=== PATIENT | female | born 1975 | race Hispanic/Latino ===

== ENCOUNTER 2019-03-29 23:36 | Emergency (ER) | payer OTHER ==
[2019-03-30] MEDS ORDERED: KETOROLAC TROMETHAMINE 30MG/ML ONE (00:22)
[2019-03-30] MEDS ORDERED: TETANUS/DIPHTHERIA TOXOID [ADULT] 0.5 ML VIAL IM ONE (00:22)
== END 2019-03-30 00:47 | disposition home or self-care (01) ==
LOC: EDH 23:36
DX: L03.011 Cellulitis of right finger (principal); E11.9 Type 2 diabetes mellitus without complications; Z90.49 Acquired absence of other specified parts of digestive tract; Z98.890 Other specified postprocedural states; Z88.8 Allergy status to other drugs, medicaments and biological substances
CPT/HCPCS: 90471; 90714; 96372; 99284; J1885

== ENCOUNTER 2019-04-01 10:57 | Emergency (ER) | payer OTHER ==
[2019-04-01] MEDS ORDERED: LIDOCAINE HCL MPF 1% 5ML VIAL ONE (11:43)
== END 2019-04-01 12:12 | disposition home or self-care (01) ==
LOC: EDH 10:57
DX: L03.011 Cellulitis of right finger (principal); E11.9 Type 2 diabetes mellitus without complications; Z88.8 Allergy status to other drugs, medicaments and biological substances; Z90.49 Acquired absence of other specified parts of digestive tract; Z72.0 Tobacco use
CPT/HCPCS: 10060; 73140; 99284; J3490

== ENCOUNTER 2019-09-09 16:55 | Emergency (ER) | payer OTHER ==
[2019-09-09] MEDS ORDERED: ACETAMINOPHEN EXTRA STRENGTH 500 MG TABLET ONE (17:29)
[2019-09-09 18:02] LABS: BASOPHILS % (AUTO) 0.5 % (0.0-5.0); EOSINOPHILS % (AUTO) 2.9 % (0.0-8.0); HEMATOCRIT 41.8 % (36-48); LYMPHOCYTES % (AUTO) 20.6 % (21.0-51.0); MEAN CORPUSCULAR HEMOGLOBIN 29.4 pg (27.0-33.0); MEAN CORPUSCULAR HGB CONC 33.7 g/dL (32.0-36.0); MEAN CORPUSCULAR VOLUME 87.3 fL (79-99); MONOCYTES % (AUTO) 5.7 % (3.0-13.0); NEUTROPHILS % (AUTO) 70.1 % (40.0-77.0); PLATELET COUNT (AUTO) 258 K/uL (130-400); RED BLOOD CELL COUNT(AUTO) 4.79 MIL/uL (4.00-5.50); RED CELL DISTRIBUTION WIDTH 12.8 % (11.0-15.5); WHITE BLOOD COUNT (AUTO) 9.8 K/uL (4.8-10.8)
[2019-09-09 18:13] LABS: CREATININE 0.7 mg/dL (0.5-1.5); POTASSIUM 3.7 mmol/L (3.5-5.1)
[2019-09-09 18:18] LABS: ALBUMIN 3.4 g/dL (3.5-5.0); BILIRUBIN,TOTAL 0.2 mg/dL (0.2-1.0); TOTAL PROTEIN, SERUM 6.8 g/dL (6.0-8.3)
== END 2019-09-09 19:44 | disposition home or self-care (01) ==
LOC: EDH 16:55
DX: I88.9 Nonspecific lymphadenitis, unspecified (principal); E11.9 Type 2 diabetes mellitus without complications; Z90.49 Acquired absence of other specified parts of digestive tract; Z72.0 Tobacco use
CPT/HCPCS: 36415; 76536; 80053; 84443; 85025

== ENCOUNTER 2019-09-12 17:00 | Emergency (ER) | payer OTHER ==
[2019-09-12] MEDS ORDERED: IBUPROFEN 600 MG TABLET ONE (17:24)
== END 2019-09-12 18:32 | disposition home or self-care (01) ==
LOC: EDH 17:00
DX: S90.112A Contusion of left great toe without damage to nail, initial encounter (principal); E11.9 Type 2 diabetes mellitus without complications; Z90.49 Acquired absence of other specified parts of digestive tract; Z72.0 Tobacco use; Z88.8 Allergy status to other drugs, medicaments and biological substances; W20.8XXA Other cause of strike by thrown, projected or falling object, initial encounter; Y93.89 Activity, other specified; Y92.098 Other place in other non-institutional residence as the place of occurrence of the external cause; Y99.8 Other external cause status
CPT/HCPCS: 73660

== ENCOUNTER 2019-09-26 23:19 | Emergency (ER) | payer OTHER ==
[2019-09-26] MEDS ORDERED: OCTYL 2-CYANOACRYLATE 1 EACH TP ONE (23:45)
== END 2019-09-27 00:11 | disposition home or self-care (01) ==
LOC: EDH 23:19
DX: S61.217A Laceration without foreign body of left little finger without damage to nail, initial encounter (principal); E11.9 Type 2 diabetes mellitus without complications; Z88.8 Allergy status to other drugs, medicaments and biological substances; W26.0XXA Contact with knife, initial encounter; Y93.G3 Activity, cooking and baking; Y92.89 Other specified places as the place of occurrence of the external cause; Y99.8 Other external cause status
CPT/HCPCS: 12001; 73140

== ENCOUNTER 2019-10-16 15:40 | Emergency (ER) | payer OTHER ==
[2019-10-16] MEDS ORDERED: IBUPROFEN 600 MG TABLET ONE (16:38)
== END 2019-10-16 16:56 | disposition home or self-care (01) ==
LOC: EDH 15:40
DX: S93.602A Unspecified sprain of left foot, initial encounter (principal); S93.601A Unspecified sprain of right foot, initial encounter; E11.9 Type 2 diabetes mellitus without complications; Z88.8 Allergy status to other drugs, medicaments and biological substances; Z72.0 Tobacco use; X50.1XXA Overexertion from prolonged static or awkward postures, initial encounter; Y93.89 Activity, other specified; Y92.098 Other place in other non-institutional residence as the place of occurrence of the external cause; Y99.8 Other external cause status
CPT/HCPCS: 73600; 73630

== ENCOUNTER 2020-05-21 10:00 | Inpatient (IN) | payer OTHER ==
[~2020-05-21] VITALS: Ht 175.3 cm; Wt 92.9 kg
[2020-05-21 12:22] LABS: BASOPHILS % (AUTO) 0.5 % (0.0-5.0); EOSINOPHILS % (AUTO) 1.7 % (0.0-8.0); HEMATOCRIT 46.5 % (36-48); LYMPHOCYTES % (AUTO) 19.3 % (21.0-51.0); MEAN CORPUSCULAR HEMOGLOBIN 30.1 pg (27.0-33.0); MEAN CORPUSCULAR HGB CONC 34.6 g/dL (32.0-36.0); MEAN CORPUSCULAR VOLUME 87.1 fL (79-99); MONOCYTES % (AUTO) 5.5 % (3.0-13.0); NEUTROPHILS % (AUTO) 72.5 % (40.0-77.0); PLATELET COUNT (AUTO) 273 K/uL (130-400); RED BLOOD CELL COUNT(AUTO) 5.34 MIL/uL (4.00-5.50); RED CELL DISTRIBUTION WIDTH 12.4 % (11.0-15.5); WHITE BLOOD COUNT (AUTO) 9.9 K/uL (4.8-10.8)
[2020-05-21 12:35] LABS: CREATININE 0.7 mg/dL (0.5-1.5); POTASSIUM 3.9 mmol/L (3.5-5.1)
[2020-05-22 09:31] VITALS: BP 112/82
[2020-05-25] MEDS ORDERED: PANT40TA54 PO (09:56)
[2020-05-25] MEDS ORDERED: INSLAN SQ (09:56)
[2020-05-25] MEDS ORDERED: INSU200I SQ (09:56)
[2020-05-29] VITALS (23 sets, daily range): BP systolic 86–140; BP diastolic 48–85
[2020-05-29] MEDS ORDERED: SODIUM CHLORIDE 0.9% 1000ML 1,000 ML IV ONE (05:50)
--- NOTE | 2020-05-29 06:00 | NUR ---
PREOP PT ARRIVED AMBULATORY IN NO DISTRESS. PT HERE FOR SURGERY. P T ORIENTED TO ROOM AND CALL LIGHT. WILL CONTINUE TO MONITOR PT
[2020-05-29] MEDS ORDERED: INSULIN HUMULIN R 100 UNIT/ML 3ML ONE (06:25)
[2020-05-29] MEDS ORDERED: DEXAMETHASONE SOD PHOSPHATE 10MG/ML 1ML VIAL ONE (06:29)
[2020-05-29] MEDS ORDERED: SUCCINYLCHOLINE CHLORIDE 20 MG/ML 10 ML VIAL ONE (06:29)
[2020-05-29] MEDS ORDERED: MIDAZOLAM HCL 1 MG/ML 2ML VIAL ONE (06:29)
[2020-05-29] MEDS ORDERED: LIDOCAINE PF 2% 5ML ABBOJECT ONE (06:29)
[2020-05-29] MEDS ORDERED: ONDANSETRON HCL 4 MG/2 ML VIAL ONE (06:29)
[2020-05-29] MEDS ORDERED: PROPOFOL 10 MG/ML 20ML VIAL IV ONE (06:30)
[2020-05-29] MEDS ORDERED: ROCURONIUM 10MG/1ML SYR 10 MG/ML ML ONE (06:30)
[2020-05-29] MEDS ORDERED: NEOSTIGMINE 5MG/5ML SYR IV ONE (06:30)
[2020-05-29] MEDS ORDERED: GLYCOPYRROLATE 1 MG/5 ML SYRINGE ONE (06:30)
[2020-05-29] MEDS ORDERED: FENTANYL CITRATE PF 50 MCG/1 ML 2ML VIAL ONE ×3 (06:30→08:20)
--- NOTE | 2020-05-29 06:30 | NUR ---
REPORT REPORTED FBS OF 305 TO JOCE VITALE CRNA. RECEIVED NEW ORDERS FOR REGULAR INSULIN 8 UNITS SQ X1.
[2020-05-29] MEDS: CEFAZOLIN SODIUM 1 GM VIAL ONE ×2 (06:39→06:48)
[2020-05-29] MEDS ORDERED: INSULIN HUMULIN R 100 UNIT/ML 3ML SQ SCH (06:45)
[2020-05-29] MEDS ORDERED: PHENYLEPHRINE HCL 10 MG/ML 1ML VIAL IV ONE (07:53)
[2020-05-29] MEDS ORDERED: BISACODYL 10 MG SUPP.RECT RC PRN (10:00)
[2020-05-29] MEDS ORDERED: DOCUSATE SODIUM 100 MG CAP PO PRN (10:00)
[2020-05-29] MEDS ORDERED: DEXTROSE 5%-LACTATED RINGERS 1,000 ML IV PRN (10:00)
[2020-05-29] MEDS ORDERED: PROMETHAZINE HCL 25 MG/ML 1ML AMPULE IM PRN (10:00)
[2020-05-29] MEDS ORDERED: ONDANSETRON HCL 4 MG/2 ML VIAL IVP PRN (10:00)
[2020-05-29] MEDS ORDERED: IBUPROFEN 600 MG TABLET PO PRN (10:00)
[2020-05-29] MEDS ORDERED: ACETAMINOPHEN-CODEINE 300/30MG TAB PO PRN (10:00)
[2020-05-29] MEDS: PROMETHAZINE HCL 25 MG/ML 1ML AMPULE IM PRN ×2 (10:52→16:43)
[2020-05-29] MEDS: MEPERIDINE-PF 75 MG/ML SYG IM PRN ×2 (10:53→16:43)
[2020-05-29] MEDS: INSULIN HUMULIN R 100 UNIT/ML 3ML SQ SCH ×3 (12:27→21:17)
[2020-05-29] MEDS: SODIUM CHLORIDE 0.9% 1000ML 1,000 ML IV SCH (21:49)
[2020-05-30] VITALS (7 sets, daily range): BP systolic 105–120; BP diastolic 57–75
[2020-05-30] MEDS: PROMETHAZINE HCL 25 MG/ML 1ML AMPULE IM PRN (03:54)
[2020-05-30] MEDS: MEPERIDINE-PF 75 MG/ML SYG IM PRN (03:55)
[2020-05-30] MEDS: INSULIN HUMULIN R 100 UNIT/ML 3ML SQ SCH ×4 (07:10→21:28)
[2020-05-30] MEDS: SODIUM CHLORIDE 0.9% 1000ML 1,000 ML IV SCH ×3 (07:35→20:12)
[2020-05-30 07:41] LABS: HEMATOCRIT 37.6 % (36-48); MEAN CORPUSCULAR HEMOGLOBIN 30.1 pg (27.0-33.0); MEAN CORPUSCULAR HGB CONC 35.1 g/dL (32.0-36.0); MEAN CORPUSCULAR VOLUME 85.8 fL (79-99); RED BLOOD CELL COUNT(AUTO) 4.38 MIL/uL (4.00-5.50); RED CELL DISTRIBUTION WIDTH 12.5 % (11.0-15.5)
[2020-05-30] MEDS ORDERED: HYDROCODONE/ACETAMINOPHEN 5/325 MG TAB PO PRN (09:00)
[2020-05-30] MEDS ORDERED: BISACODYL 10 MG SUPP.RECT RC PRN (09:00)
[2020-05-30] MEDS ORDERED: ACETAMINOPHEN-CODEINE 300/30MG TAB PO PRN (09:00)
[2020-05-30] MEDS ORDERED: SIMETHICONE 80 MG TAB.CHEW PO PRN (09:00)
[2020-05-30] MEDS: SIMETHICONE 80 MG TAB.CHEW PO PRN ×2 (09:44→21:02)
[2020-05-30] MEDS: DOCUSATE SODIUM 100 MG CAP PO SCH ×2 (09:44→21:02)
[2020-05-30] MEDS: IBUPROFEN 800 MG TAB PO PRN ×3 (09:59→23:47)
--- NOTE | 2020-05-30 16:53 | NUR ---
CM NOTE/IA MEET WITH PATIENT IN ROOM. PER PATIENT, LIVES WITH FAMILY, INDEPENDENT WITH ADLS, NO USE OF DME OR PROVIDERS, AND FEELS SAFE TO RETURN HOME ONCE DISCHARGED. Addendum: 05/30/20 at 1658 by SALVATORE LANDEROS RN CM Amended: Links added.
--- NOTE | 2020-05-30 21:30 | NUR ---
pt. ambulated in room for 12 minutes, well tolerated.
--- NOTE | 2020-05-30 22:00 | NUR ---
SUPRA PUBIC CATHETER CONNECTED TO FRANCOIS BAG FOR THE NIGHT, DRAINING WELL. Addendum: 05/30/20 at 2254 by TARUN MCCARTHY RN RN Amended: Links added.
[2020-05-31 03:00] VITALS: BP 107/69
--- NOTE | 2020-05-31 06:20 | NUR ---
pt. awake and ambulated in hallway for 30 minutes, well tolerated.
[2020-05-31] MEDS: INSULIN HUMULIN R 100 UNIT/ML 3ML SQ SCH ×2 (06:53→11:17)
[2020-05-31] MEDS: IBUPROFEN 800 MG TAB PO PRN (06:53)
[2020-05-31 07:40] VITALS: BP 127/72
[2020-05-31] MEDS: SODIUM CHLORIDE 0.9% 1000ML 1,000 ML IV SCH (08:00)
--- NOTE | 2020-05-31 08:35 | NUR ---
DR MULLINS ROUNDING ON PATIENT. DISCHARGE POC REVIEWED WITH PATIENT. QUESTIONS INVITED AND ANSWERED. PATIENT VOICED UNDERSTANDING ON ALL DISCHARGE INSTRUCTIONS.
[2020-05-31] MEDS: DOCUSATE SODIUM 100 MG CAP PO SCH (09:00)
[2020-05-31 11:03] VITALS: BP 127/75
--- NOTE | 2020-05-31 13:20 | NUR ---
DISCHARGE INSTRUCTIONS READ AND EXPLAINED TO PATIENT. RX FOR TYLENOL #3, COLACE AND MACROBID HANDED TO PATIENT. BLADDER TRAINING INSTRUCTIONS AND RECORDING REVIEWED WITH PATIENT, DRESSING CHANGE DEMONSTRATED, REEDUCATED ON IMPORTANCE OF I.S AND HANDOUTS FOR CARE AFTER HYSTERECTOMY REVIEWED WITH PATIENT. QUESTIONS INVITED. PATIENT VOICED UNDERSTANDING ON ALL INSTRUCTIONS.
--- NOTE | 2020-05-31 14:00 | NUR ---
PATIENT LEFT UNIT VIA WHEELCHAIR WITH BELONGINGS IN HAND. PERSONAL VEHICLE USED FOR TRANSPORTATION. NO COMPLAINTS OR CONCERNS ADDRESSED FROM PATIENT ON DISCHARGE.
== END 2020-05-31 14:00 | disposition home or self-care (01) | DRG 743 ==
LOC: EDSTATUS 10:00 → DAHIP 05-29 05:18 → WSH 05-29 10:15
PROVIDERS: ADMIT Obstetrics & Gynecology; ATTEND Obstetrics & Gynecology
PROC: 0UT90ZZ Resection of Uterus, Open Approach (ICD-10-PCS; principal; 2020-05-29 06:36)
PROC: 0UT00ZZ Resection of Right Ovary, Open Approach (ICD-10-PCS; 2020-05-29 06:36)
PROC: 0UT70ZZ Resection of Bilateral Fallopian Tubes, Open Approach (ICD-10-PCS; 2020-05-29 06:36)
PROC: 0UUF0JZ Supplement Cul-de-sac with Synthetic Substitute, Open Approach (ICD-10-PCS; 2020-05-29 06:36)
DX: N81.4 Uterovaginal prolapse, unspecified (principal); N83.201 Unspecified ovarian cyst, right side; N39.3 Stress incontinence (female) (male); K46.9 Unspecified abdominal hernia without obstruction or gangrene; Z91.040 Latex allergy status; Z88.8 Allergy status to other drugs, medicaments and biological substances
CPT/HCPCS: 36415; 80048; 82948; 84703; 85025; 85027; 86850; 86900; 86901; 96372; A4344; A4606; G0378; J0330; J0690; J1100; J1815; J2001; J2175; J2250; J2370; J2405; J2550; J2704; J2710; J3010; J3490; J7030; J7120; U0003

== ENCOUNTER → 2020-10-22 | Outpatient (CLI) | payer OTHER ==
[~2020-10-22] MED LIST: INSLAN SQ; INSU200I SQ; PANT40TA54 PO
[2020-10-22 09:36] LABS: APPEARANCE,URINE Clear (CLEAR); BASOPHILS % (AUTO) 0.6 % (0.0-5.0); BILIRUBIN,URINE Negative (NEGATIVE); COLOR,URINE Dark Yellow (YELLOW); EOSINOPHILS % (AUTO) 2.8 % (0.0-8.0); GLUCOSE, URINE (UA) 250 mg/dL (NEGATIVE); HEMATOCRIT 45.5 % (36-48); KETONES,URINE Trace mg/dL (NEGATIVE); LEUKOCYTE ESTERASE ,URINE Small (NEGATIVE); MEAN CORPUSCULAR HEMOGLOBIN 29.2 pg (27.0-33.0); MEAN CORPUSCULAR HGB CONC 33.4 g/dL (32.0-36.0); MEAN CORPUSCULAR VOLUME 87.5 fL (79-99); MONOCYTES % (AUTO) 5.4 % (3.0-13.0); NEUTROPHILS % (AUTO) 71.6 % (40.0-77.0); NITRATE,URINE Negative (NEGATIVE); OCCULT BLOOD,URINE Trace (NEGATIVE); PLATELET COUNT (AUTO) 291 K/uL (130-400); PROTEIN,URINE Negative (NEGATIVE); RED CELL DISTRIBUTION WIDTH 12.6 % (11.0-15.5); WHITE BLOOD COUNT (AUTO) 10.6 K/uL (4.8-10.8)
[2020-10-22 09:49] LABS: HEMOGLOBIN A1C 10.6 % (4.0-6.0)
[2020-10-22 09:59] LABS: ALBUMIN 3.3 g/dL (3.5-5.0); BILIRUBIN,TOTAL 0.2 mg/dL (0.2-1.0); CREATININE 0.7 mg/dL (0.5-1.5); POTASSIUM 3.5 mmol/L (3.5-5.1); THYROID STIMULATING HORMONE 1.15 uIU/mL (0.36-3.74); TOTAL PROTEIN, SERUM 7.5 g/dL (6.0-8.3)
[2020-10-22 10:16] LABS: RBC,URINE 0-1 /HPF (0-1)
[2020-10-22 10:17] LABS: BACTERIA,URINE Few /HPF (None Seen); MUCUS,URINE Moderate LPF (None Seen)
[2020-10-22 10:44] LABS: ERYTHROCYTE SEDIMENTATION RATE 11 MM/HR (0-20)
== END | disposition home or self-care (01) ==
LOC: LAB 08:28
PROVIDERS: ATTEND Nurse Practitioner Family
DX: I10 Essential (primary) hypertension (principal); E11.69 Type 2 diabetes mellitus with other specified complication; E78.00 Pure hypercholesterolemia, unspecified; E55.9 Vitamin D deficiency, unspecified
CPT/HCPCS: 36415; 80053; 80061; 81001; 82043; 82306; 83036; 84439; 84443; 85025; 85651

== ENCOUNTER → 2020-12-19 | Outpatient (CLI) | payer OTHER | END | disposition home or self-care (01) | LOC: SHCH 10:14 | PROVIDERS: ATTEND Internal Medicine Cardiovascular Disease | DX: I87.2 Venous insufficiency (chronic) (peripheral) (principal); R07.89 Other chest pain | CPT/HCPCS: 93925; 93970 ==

== ENCOUNTER → 2020-12-28 | Outpatient (CLI) | payer OTHER | END | disposition home or self-care (01) | LOC: RAH 12:22 | PROVIDERS: ATTEND Nurse Practitioner Family | DX: M79.671 Pain in right foot (principal) | CPT/HCPCS: 73630 ==